=== PATIENT | female | born 1980 | race Hispanic/Latino ===

== ENCOUNTER 2017-05-03 16:22 | Emergency (ER) | payer OTHER ==
[2017-05-03] MEDS ORDERED: Amoxicillin/Potassium Clav 875 MG TAB ONE (16:50)
[2017-05-03] MEDS ORDERED: Adacel (T-DAP) 0.5 ML VIAL ONE (16:50)
[2017-05-03] MEDS ORDERED: Triple Antibiotic Oint 1 GM Packet ONE (16:50)
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
== END 2017-05-03 20:51 | disposition home or self-care (01) ==
LOC: MADERS 16:22
DX: S91.151A Open bite of right great toe without damage to nail, initial encounter (principal); S91.154A Open bite of right lesser toe(s) without damage to nail, initial encounter; J45.909 Unspecified asthma, uncomplicated; I10 Essential (primary) hypertension; E11.9 Type 2 diabetes mellitus without complications; F25.9 Schizoaffective disorder, unspecified; Z87.891 Personal history of nicotine dependence; W54.0XXA Bitten by dog, initial encounter
CPT/HCPCS: 90471; 90715

== ENCOUNTER 2017-05-09 10:51 | Emergency (ER) | payer OTHER ==
[2017-05-09] MEDS ORDERED: Diazepam 5 MG TAB ONE (11:00)
[2017-05-09 11:38] LABS: Pregnancy Test - Urine (BHCG) Negative (Negative); Pregu Control Background? CLEAR/WHITE (CLR/WHITE); Pregu Control Bar Appear? YES (CONTROL BAR)
--- NOTE | 2017-05-09 12:02 | RAD ---
CHEST TWO VIEWS: History: Cough. Comparison: None. FINDINGS: Normal cardiac silhouette. Pulmonary vessels and hilum are normal. No consolidation. Focal nodular d ensity in the right midlung, measuring 0.8 cm is noted. No pneumothorax or osseous abnormality. IMPRESSION: Nonspecific right midlung density measuring 0.8 cm. POS: [facility]
== END 2017-05-09 12:33 | disposition home or self-care (01) ==
LOC: MADERS 10:51
DX: F41.9 Anxiety disorder, unspecified (principal); J45.909 Unspecified asthma, uncomplicated; B19.20 Unspecified viral hepatitis C without hepatic coma; I10 Essential (primary) hypertension; E11.9 Type 2 diabetes mellitus without complications; F25.9 Schizoaffective disorder, unspecified; F17.210 Nicotine dependence, cigarettes, uncomplicated; Z79.899 Other long term (current) drug therapy
CPT/HCPCS: 71020; 81025

== ENCOUNTER 2017-07-26 06:18 | Emergency (ER) | payer OTHER ==
[2017-07-26] MEDS ORDERED: Ibuprofen 800 MG TAB ONE (07:14)
[2017-07-26] MEDS ORDERED: Fentanyl 100 MCG/2 ML VIAL ONE (07:14)
[2017-07-26] MEDS ORDERED: Ondansetron ODT 4 MG TAB ONE (07:14)
== END 2017-07-26 07:50 | disposition home or self-care (01) ==
LOC: MADERS 06:18
DX: J11.1 Influenza due to unidentified influenza virus with other respiratory manifestations (principal); J45.909 Unspecified asthma, uncomplicated; I10 Essential (primary) hypertension; E11.9 Type 2 diabetes mellitus without complications; F25.9 Schizoaffective disorder, unspecified; F17.210 Nicotine dependence, cigarettes, uncomplicated; Z79.899 Other long term (current) drug therapy
CPT/HCPCS: 96372; J3010; J7620; Q0162

== ENCOUNTER 2017-08-06 15:30 | Emergency (ER) | payer OTHER ==
[2017-08-06] MEDS ORDERED: Promethazine HCl 25 MG/ML VIAL ONE (16:48)
[2017-08-06 17:12] LABS: Pregnancy Test - Urine (BHCG) Negative (Negative); Specific Gravity 1.029 (1.002-1.036)
[2017-08-06 17:13] LABS: Pregu Control Background? CLEAR/WHITE (CLR/WHITE); Pregu Control Bar Appear? YES (CONTROL BAR)
[2017-08-06] MEDS ORDERED: Loperamide HCl 2 MG CAP ONE (17:56)
[2017-08-06] MEDS ORDERED: Benzonatate 100 MG CAP ONE (18:30)
== END 2017-08-06 18:46 | disposition home or self-care (01) ==
LOC: MADERS 15:30
DX: K52.9 Noninfective gastroenteritis and colitis, unspecified (principal); J45.909 Unspecified asthma, uncomplicated; I10 Essential (primary) hypertension; E11.9 Type 2 diabetes mellitus without complications; F25.9 Schizoaffective disorder, unspecified; F17.210 Nicotine dependence, cigarettes, uncomplicated
CPT/HCPCS: 81025; 96372; J2550

== ENCOUNTER 2017-08-07 11:37 | Emergency (ER) | payer OTHER ==
[2017-08-07] MEDS ORDERED: Lorazepam 2 MG/ML VIAL ONE (13:02)
[2017-08-07] MEDS ORDERED: Diazepam 5 MG TAB ONE (13:11)
== END 2017-08-07 13:16 | disposition home or self-care (01) ==
LOC: MADERS 11:37
DX: J20.9 Acute bronchitis, unspecified (principal); F41.9 Anxiety disorder, unspecified; F20.9 Schizophrenia, unspecified; J45.909 Unspecified asthma, uncomplicated; E11.9 Type 2 diabetes mellitus without complications; I10 Essential (primary) hypertension; F17.210 Nicotine dependence, cigarettes, uncomplicated; Z79.899 Other long term (current) drug therapy
CPT/HCPCS: 99282; J2060

== ENCOUNTER 2017-08-12 08:43 | Emergency (ER) | payer OTHER | END 2017-08-12 09:20 | disposition home or self-care (01) | LOC: MADERS 08:43 | DX: M79.602 Pain in left arm (principal); M54.5 Low back pain; G89.29 Other chronic pain | CPT/HCPCS: 99283 ==

== ENCOUNTER 2017-09-06 02:28 | Emergency (ER) | payer OTHER ==
[2017-09-06] MEDS ORDERED: Ketorolac Tromethamine 30 MG/ML VIAL ONE (03:46)
[2017-09-06] MEDS ORDERED: Ondansetron HCl/PF 4 MG/2 ML Vial ONE (03:46)
[2017-09-06 04:01] LABS: Bilirubin Negative (Negative); Blood, Urine Moderate (Negative); Clarity Clear (Clear); Glucose, Urine (Dipstick) Negative (Negative); Leukocyte Negative (Negative); Nitrite Negative (Negative); Protein, Urine (Dipstick) Negative (Neg-Trace); Urobilinogen 0.2 mg/dL (0.2-1.0)
[2017-09-06 04:10] LABS: Amphetamine Not Detected (NotDetected); Barbiturates Screen Not Detected (NotDetected); Benzodiazepine Screen Detected (NotDetected); Cocaine Metabolite Screen Not Detected (NotDetected); Medtox Control Line Valid? VALID (VALID); Methadone Not Detected (NotDetected); Methamphetamine Not Detected (NotDetected); Opiate Screen Not Detected (NotDetected); Oxycodone Screen Not Detected (NotDetected); Phencyclidine (PCP) Not Detected (NotDetected); THC/Cannabinoid Screen Not Detected (NotDetected); Tricyclic Screen Not Detected (NotDetected)
[2017-09-06 04:13] LABS: Bacteria/HPF None Seen HPF (None Seen); WBC/HPF 0-3 HPF (0-3)
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
== END 2017-09-06 04:57 | disposition home or self-care (01) ==
LOC: MADERS 02:28
DX: S02.2XXA Fracture of nasal bones, initial encounter for closed fracture (principal); S01.511A Laceration without foreign body of lip, initial encounter; J45.909 Unspecified asthma, uncomplicated; E11.9 Type 2 diabetes mellitus without complications; F41.9 Anxiety disorder, unspecified; F17.210 Nicotine dependence, cigarettes, uncomplicated; Z79.899 Other long term (current) drug therapy; W22.8XXA Striking against or struck by other objects, initial encounter
CPT/HCPCS: 70450; 70486; 72125; 80306; 81001; 87086; J1885; J2405

== ENCOUNTER 2018-01-03 12:27 | Emergency (ER) | payer OTHER | END 2018-01-03 13:54 | disposition left against medical advice (07) | LOC: MADERS 12:27 | DX: S00.83XA Contusion of other part of head, initial encounter (principal); J45.909 Unspecified asthma, uncomplicated; E11.9 Type 2 diabetes mellitus without complications; F41.9 Anxiety disorder, unspecified; Z87.891 Personal history of nicotine dependence; Z79.899 Other long term (current) drug therapy; Y04.1XXA Assault by human bite, initial encounter | CPT/HCPCS: 99282 ==

== ENCOUNTER 2018-01-04 11:16 | Emergency (ER) | payer OTHER ==
[2018-01-04 11:36] LABS: Pregnancy Test - Urine (BHCG) Negative (Negative); Pregu Control Background? CLEAR/WHITE (CLR/WHITE); Pregu Control Bar Appear? YES (CONTROL BAR); Specific Gravity 1.025 (1.002-1.036)
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
== END 2018-01-04 12:05 | disposition home or self-care (01) ==
LOC: MADERS 11:16
DX: S01.451A Open bite of right cheek and temporomandibular area, initial encounter (principal); L03.211 Cellulitis of face; E11.9 Type 2 diabetes mellitus without complications; F41.9 Anxiety disorder, unspecified; J45.909 Unspecified asthma, uncomplicated; Z87.891 Personal history of nicotine dependence; Z79.899 Other long term (current) drug therapy; Y04.1XXA Assault by human bite, initial encounter
CPT/HCPCS: 70486; 81025

== ENCOUNTER 2018-01-29 12:18 | Emergency (ER) | payer OTHER | END 2018-01-29 13:00 | disposition home or self-care (01) | LOC: MADERS 12:18 | DX: M25.562 Pain in left knee (principal); E11.9 Type 2 diabetes mellitus without complications; J45.909 Unspecified asthma, uncomplicated; F41.9 Anxiety disorder, unspecified; Z87.891 Personal history of nicotine dependence | CPT/HCPCS: 99283 ==

== ENCOUNTER 2018-05-20 07:15 | Emergency (ER) | payer MEDICAID, OTHER ==
[2018-05-20] MEDS ORDERED: Lorazepam 1 MG TAB ONE (08:07)
== END 2018-05-20 08:15 | disposition home or self-care (01) ==
LOC: MADERS 07:15
DX: F41.0 Panic disorder [episodic paroxysmal anxiety] (principal)
CPT/HCPCS: 99282

== ENCOUNTER 2018-05-24 07:54 | Emergency (ER) | payer MEDICAID ==
[2018-05-24] MEDS ORDERED: Ibuprofen 800 MG TAB ONE (08:24)
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
== END 2018-05-24 08:55 | disposition home or self-care (01) ==
LOC: MADERS 07:54
DX: S83.92XA Sprain of unspecified site of left knee, initial encounter (principal); S16.1XXA Strain of muscle, fascia and tendon at neck level, initial encounter; S39.012A Strain of muscle, fascia and tendon of lower back, initial encounter; S40.012A Contusion of left shoulder, initial encounter; R05 Cough; F41.9 Anxiety disorder, unspecified; Z79.899 Other long term (current) drug therapy; F17.200 Nicotine dependence, unspecified, uncomplicated; W01.0XXA Fall on same level from slipping, tripping and stumbling without subsequent striking against object, initial encounter

== ENCOUNTER 2018-07-27 04:04 | Emergency (ER) | payer MEDICAID ==
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
== END 2018-07-27 07:08 | disposition home or self-care (01) ==
LOC: MADERS 04:04
DX: S50.11XA Contusion of right forearm, initial encounter (principal); S20.222A Contusion of left back wall of thorax, initial encounter; S00.83XA Contusion of other part of head, initial encounter; E11.9 Type 2 diabetes mellitus without complications; I10 Essential (primary) hypertension; E66.9 Obesity, unspecified; J45.909 Unspecified asthma, uncomplicated; F41.9 Anxiety disorder, unspecified; F32.9 Major depressive disorder, single episode, unspecified; F25.9 Schizoaffective disorder, unspecified; F17.200 Nicotine dependence, unspecified, uncomplicated; Z79.51 Long term (current) use of inhaled steroids; Y04.0XXA Assault by unarmed brawl or fight, initial encounter
CPT/HCPCS: 70450; 70486

== ENCOUNTER 2018-10-30 09:34 | Emergency (ER) | payer MEDICAID, OTHER | END 2018-10-30 09:57 | disposition home or self-care (01) | LOC: MADERS 09:34 | DX: F41.9 Anxiety disorder, unspecified (principal); E11.9 Type 2 diabetes mellitus without complications; I10 Essential (primary) hypertension; J45.909 Unspecified asthma, uncomplicated; F32.9 Major depressive disorder, single episode, unspecified; F25.9 Schizoaffective disorder, unspecified; F17.200 Nicotine dependence, unspecified, uncomplicated | CPT/HCPCS: 99283 ==

== ENCOUNTER 2019-06-18 11:10 | Emergency (ER) | payer OTHER | END 2019-06-18 11:45 | disposition home or self-care (01) | LOC: MADERS 11:10 | DX: F41.9 Anxiety disorder, unspecified (principal); E11.9 Type 2 diabetes mellitus without complications; I10 Essential (primary) hypertension; E66.9 Obesity, unspecified; J45.909 Unspecified asthma, uncomplicated; F32.9 Major depressive disorder, single episode, unspecified; F25.9 Schizoaffective disorder, unspecified; F17.200 Nicotine dependence, unspecified, uncomplicated | CPT/HCPCS: 99283 ==

== ENCOUNTER 2019-06-25 21:40 | Emergency (ER) | payer OTHER | END 2019-06-25 22:10 | disposition left against medical advice (07) | LOC: MADERS 21:40 | DX: Z53.21 Procedure and treatment not carried out due to patient leaving prior to being seen by health care provider (principal) ==

== ENCOUNTER 2019-07-05 06:04 | Emergency (ER) | payer OTHER ==
[2019-07-05] MEDS ORDERED: Lidocaine 2% 20 ml MDV ONE (06:29)
[2019-07-05] MEDS ORDERED: Sodium Chloride Irrig Solution 250 ML BOT ONE (06:36)
[2019-07-05 07:22] LABS: Pregnancy Test - Urine (BHCG) Negative (Negative); Pregu Control Background? CLEAR/WHITE (CLR/WHITE); Pregu Control Bar Appear? YES (CONTROL BAR); Specific Gravity 1.013 (1.002-1.036)
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
[2019-07-05] MEDS ORDERED: Bacitracin 1 PK ONE (07:51)
== END 2019-07-05 08:05 | disposition home or self-care (01) ==
LOC: MADERS 06:04
DX: S01.511A Laceration without foreign body of lip, initial encounter (principal); E11.9 Type 2 diabetes mellitus without complications; I10 Essential (primary) hypertension; J45.909 Unspecified asthma, uncomplicated; F41.9 Anxiety disorder, unspecified; F17.210 Nicotine dependence, cigarettes, uncomplicated; Y04.8XXA Assault by other bodily force, initial encounter
CPT/HCPCS: 70486; 81025; J2001

== ENCOUNTER 2021-01-15 10:36 | Emergency (ER) | payer OTHER ==
[2021-01-15] MEDS ORDERED: Ketorolac Tromethamine 30 MG/ML VIAL ONE (11:28)
== END 2021-01-15 12:00 | disposition home or self-care (01) ==
LOC: MADERS 10:36
DX: S83.92XA Sprain of unspecified site of left knee, initial encounter (principal); E11.9 Type 2 diabetes mellitus without complications; I10 Essential (primary) hypertension; F17.210 Nicotine dependence, cigarettes, uncomplicated; X58.XXXA Exposure to other specified factors, initial encounter
CPT/HCPCS: 96372; 99283; J1885

== ENCOUNTER 2021-02-07 07:47 | Emergency (ER) | payer OTHER | END 2021-02-07 08:23 | disposition home or self-care (01) | LOC: MADERS 07:47 | DX: J45.901 Unspecified asthma with (acute) exacerbation (principal); F41.9 Anxiety disorder, unspecified; I10 Essential (primary) hypertension; E11.9 Type 2 diabetes mellitus without complications; F17.210 Nicotine dependence, cigarettes, uncomplicated; Z79.899 Other long term (current) drug therapy; Z71.6 Tobacco abuse counseling | CPT/HCPCS: 99406 ==

== ENCOUNTER 2021-02-22 08:22 | Emergency (ER) | payer OTHER | END 2021-02-22 10:00 | disposition home or self-care (01) | LOC: MADERS 08:22 | DX: S93.501A Unspecified sprain of right great toe, initial encounter (principal); S43.401A Unspecified sprain of right shoulder joint, initial encounter; S00.531A Contusion of lip, initial encounter; S00.03XA Contusion of scalp, initial encounter; E11.9 Type 2 diabetes mellitus without complications; E66.9 Obesity, unspecified; I10 Essential (primary) hypertension; J45.909 Unspecified asthma, uncomplicated; F17.210 Nicotine dependence, cigarettes, uncomplicated; V89.2XXA Person injured in unspecified motor-vehicle accident, traffic, initial encounter ==

== ENCOUNTER 2021-04-05 09:25 | Emergency (ER) | payer OTHER ==
[2021-04-05 09:58] LABS: Pregnancy Test - Urine (BHCG) Negative (Negative); Pregu Control Background? CLEAR/WHITE (CLR/WHITE); Pregu Control Bar Appear? YES (CONTROL BAR)
[2021-04-05 10:00] LABS: Specific Gravity 1.023 (1.002-1.036)
[2021-04-08 21:48] LABS: Chlamydia by PCR Not Detected (NotDetected); GC by PCR DETECTED (NotDetected)
== END 2021-04-05 10:16 | disposition home or self-care (01) ==
LOC: MADERS 09:25
DX: N93.8 Other specified abnormal uterine and vaginal bleeding (principal); E11.9 Type 2 diabetes mellitus without complications; I10 Essential (primary) hypertension; E66.9 Obesity, unspecified; J45.909 Unspecified asthma, uncomplicated; F17.210 Nicotine dependence, cigarettes, uncomplicated
CPT/HCPCS: 81025; 87491; 87591; 99284

== ENCOUNTER 2021-04-09 13:08 | Emergency (ER) | payer OTHER ==
[2021-04-09] MEDS ORDERED: cefTRIAXone\\ROCEPHIN 1 GM VIAL ONE (13:40)
[2021-04-09] MEDS ORDERED: Azithromycin 250 MG TAB ONE (13:40)
[2021-04-09] MEDS ORDERED: Lidocaine 1% 20 ML MDV ONE (13:40)
== END 2021-04-09 14:00 | disposition home or self-care (01) ==
LOC: MADERS 13:08
DX: A54.03 Gonococcal cervicitis, unspecified (principal); E66.9 Obesity, unspecified; E11.9 Type 2 diabetes mellitus without complications; I10 Essential (primary) hypertension; J45.909 Unspecified asthma, uncomplicated; F17.210 Nicotine dependence, cigarettes, uncomplicated
CPT/HCPCS: 96372; 99283; J0696

== ENCOUNTER 2021-04-25 15:25 | Emergency (ER) | payer OTHER | END 2021-04-25 16:10 | disposition left against medical advice (07) | LOC: MADERS 15:25 | DX: Z53.21 Procedure and treatment not carried out due to patient leaving prior to being seen by health care provider (principal) ==

== ENCOUNTER 2021-04-25 17:38 | Emergency (ER) | payer OTHER ==
[2021-04-25] MEDS ORDERED: Bupivacaine PF 0.5% 30 ML VIAL ONE (18:46)
== END 2021-04-25 18:50 | disposition left against medical advice (07) ==
LOC: MADERS 17:38
DX: S61.012A Laceration without foreign body of left thumb without damage to nail, initial encounter (principal); E66.9 Obesity, unspecified; E11.9 Type 2 diabetes mellitus without complications; I10 Essential (primary) hypertension; J45.909 Unspecified asthma, uncomplicated; F17.210 Nicotine dependence, cigarettes, uncomplicated; W26.0XXA Contact with knife, initial encounter; Z92.89 Personal history of other medical treatment; Z99.0 Dependence on aspirator
CPT/HCPCS: 99282; S0020

== ENCOUNTER 2021-05-12 14:37 | Outpatient (CLI) | payer OTHER | END 2021-05-12 14:38 | disposition home or self-care (01) | LOC: MADLAB 14:37 → MADRAD 14:38 | PROVIDERS: ATTEND Nurse Practitioner Family | DX: S09.93XA Unspecified injury of face, initial encounter (principal) | CPT/HCPCS: 70110; 70200 ==

== ENCOUNTER 2021-06-27 00:07 | Emergency (ER) | payer OTHER ==
[2021-06-27] MEDS ORDERED: Ketorolac Tromethamine 60 MG/2 ML VIAL ONE (00:49)
[2021-06-27] MEDS ORDERED: HYDROcodone/Acetaminophen 5/325 mg Tablet ONE (00:49)
== END 2021-06-27 01:00 | disposition home or self-care (01) ==
LOC: MADERS 00:07
DX: S83.91XA Sprain of unspecified site of right knee, initial encounter (principal); E66.9 Obesity, unspecified; E11.9 Type 2 diabetes mellitus without complications; J45.909 Unspecified asthma, uncomplicated; F17.210 Nicotine dependence, cigarettes, uncomplicated; W19.XXXA Unspecified fall, initial encounter
CPT/HCPCS: 96372; J1885

== ENCOUNTER 2021-06-27 14:46 | Emergency (ER) | payer OTHER | END 2021-06-27 15:30 | disposition left against medical advice (07) | LOC: MADERS 14:46 | DX: Z53.21 Procedure and treatment not carried out due to patient leaving prior to being seen by health care provider (principal) ==

== ENCOUNTER 2021-10-18 15:36 | Emergency (ER) | payer OTHER | END 2021-10-18 16:08 | disposition left against medical advice (07) | LOC: MADERS 15:36 | DX: Z53.21 Procedure and treatment not carried out due to patient leaving prior to being seen by health care provider (principal) ==

== ENCOUNTER 2021-11-02 12:02 | Emergency (ER) | payer OTHER ==
[2021-11-02 12:35] LABS: #Basophils 0.1 thou/uL (0.0-0.2); #Eosinphils 0.2 thou/uL (0.0-0.7); #Monocytes 0.6 thou/uL (0.11-0.59); #Neutrophils 6.4 thou/uL (1.40-6.50); %Basophils 1.1 % (0.0-1.0); %Eosinophils 1.8 % (0.0-10.0); %Lymphocytes 21.2 % (21.0-51.0); %Monocytes 6.6 % (0.0-10.0); %Neutrophils 69.2 % (42.0-75.0); Hemoglobin 14.6 g/dL (12.0-16.0); Mean Corpuscular HGB CONC 32.5 g/dL (32.0-36.0); Mean Corpuscular Hemoglobin 32.3 pg (27.0-31.0); Mean Corpuscular Volume 99.4 fL (78.0-98.0); Mean Platelet Volume 8.7 fL (7.4-10.4); Platelet Count 271 thou/uL (130-400); RBC Distribution Width 11.5 % (11.5-14.5); White Blood Cell (WBC) Count 9.2 thou/uL (4.8-10.8)
[2021-11-02 12:42] LABS: Bilirubin Negative (Negative); Blood, Urine Moderate (Negative); Clarity Clear (Clear); Glucose, Urine (Dipstick) Negative (Negative); Ketone, Urine Negative (Negative); Leukocyte Negative (Negative); Nitrite Negative (Negative); Protein, Urine (Dipstick) Negative (Neg-Trace); Specific Gravity, Urine 1.025 (1.005-1.030); Urobilinogen 0.2 mg/dL (Less than 2)
[2021-11-02 12:43] LABS: Bacteria/HPF Rare-Few HPF (None Seen); Squamous Epithelial 0-3 HPF (0-3); WBC/HPF 0-3 HPF (0-3)
[2021-11-02 12:55] LABS: ALT (SGPT) 16 U/L (8-55); AST (SGOT) 13 U/L (5-34); Albumin 3.8 g/dL (3.5-5.0); Alkaline Phosphatase 79 U/L (40-110); Anion Gap 14 mmol/L (10-20); BUN (Urea Nitrogen) 13 mg/dL (7.0-18.7); Bilirubin, Total 0.5 mg/dL (0.2-1.2); CK (CPK) 95 U/L (29-168); Calc. Creatinine Clearance 0 mL/min (70-130); Calcium 8.8 mg/dL (7.8-10.44); Carbon Dioxide 22 mmol/L (22-29); Chloride 108 mmol/L (98-107); Globulin 2.7 g/dL (2.4-3.5); Glucose 102 mg/dL (70-105); Protein, Total 6.5 g/dL (6.0-8.3); Sodium 140 mmol/L (136-145)
== END 2021-11-02 14:45 | disposition home or self-care (01) ==
LOC: MADERS 12:02
DX: R00.2 Palpitations (principal)
CPT/HCPCS: 80053; 81003; 81015; 82550; 84484; 85025; 93005

== ENCOUNTER 2022-05-22 20:50 | Emergency (ER) | payer OTHER ==
[2022-05-22] MEDS ORDERED: Ketorolac Tromethamine 30 MG/ML VIAL ONE (21:31)
[2022-05-22] MEDS ORDERED: Ondansetron ODT 4 MG TAB ONE (21:31)
[2022-05-22] MEDS ORDERED: Ondansetron PF 4 MG/2 ML Vial ONE (21:31)
[2022-05-22] MEDS ORDERED: Sodium Chloride 0.9% 1,000 ML ONE (21:31)
[2022-05-22 22:12] LABS: #Basophils 0.1 thou/uL (0.0-0.2); #Eosinphils 0.5 thou/uL (0.0-0.7); #Lymphocytes 4.1 thou/uL (1.20-3.40); #Neutrophils 6.4 thou/uL (1.40-6.50); %Basophils 0.7 % (0.0-1.0); %Eosinophils 3.9 % (0.0-10.0); %Monocytes 8.6 % (0.0-10.0); %Neutrophils 52.8 % (42.0-75.0); Hemoglobin 14.9 g/dL (12.0-16.0); Mean Corpuscular HGB CONC 34.6 g/dL (32.0-36.0); Mean Corpuscular Hemoglobin 34.4 pg (27.0-31.0); Mean Corpuscular Volume 99.5 fL (78.0-98.0); Mean Platelet Volume 9.5 fL (7.4-10.4); Platelet Count 219 thou/uL (130-400); RBC Distribution Width 12.2 % (11.5-14.5); Red Blood Cell (RBC) Count 4.32 mill/uL (4.20-5.40); White Blood Cell (WBC) Count 12.1 thou/uL (4.8-10.8)
[2022-05-22 22:28] LABS: ALT (SGPT) 12 U/L (8-55); AST (SGOT) 11 U/L (5-34); Albumin 3.7 g/dL (3.5-5.0); Alkaline Phosphatase 76 U/L (40-110); Anion Gap 12 mmol/L (10-20); BUN (Urea Nitrogen) 21 mg/dL (7.0-18.7); Bilirubin, Total 0.3 mg/dL (0.2-1.2); Calc. Creatinine Clearance 0 mL/min (70-130); Calcium 8.7 mg/dL (7.8-10.44); Carbon Dioxide 22 mmol/L (22-29); Chloride 109 mmol/L (98-107); Estimated GFR 87; Globulin 2.5 g/dL (2.4-3.5); Glucose 91 mg/dL (70-105); Lipase 20 U/L (8-78); Protein, Total 6.2 g/dL (6.0-8.3); Sodium 139 mmol/L (136-145)
[2022-05-22 22:36] LABS: Bilirubin Negative (Negative); Blood, Urine Negative (Negative); Clarity Clear (Clear); Glucose, Urine (Dipstick) Negative (Negative); Ketone, Urine Negative (Negative); Leukocyte Negative (Negative); Nitrite Negative (Negative); Protein, Urine (Dipstick) Negative (Neg-Trace); Specific Gravity, Urine 1.025 (1.005-1.030); Urobilinogen 0.2 mg/dL (Less than 2)
[2022-05-22 22:39] LABS: Pregnancy Test - Urine (BHCG) Negative (Negative); Pregu Control Background? CLEAR/WHITE (CLR/WHITE); Pregu Control Bar Appear? YES (CONTROL BAR); Specific Gravity 1.025 (1.002-1.036)
== END 2022-05-22 23:40 | disposition home or self-care (01) ==
LOC: MADERS 20:50
DX: R10.9 Unspecified abdominal pain (principal); F17.200 Nicotine dependence, unspecified, uncomplicated; R11.2 Nausea with vomiting, unspecified
CPT/HCPCS: 36415; 74176; 80053; 81003; 81025; 83605; 83690; 84484; 85025; 86140; 93005; 96361; 96374; 96375; J1885; J2405; J7050; Q0162

== ENCOUNTER 2022-07-17 14:25 | Emergency (ER) | payer OTHER ==
[2022-07-17] MEDS ORDERED: Metoclopramide HCl 10 MG/2 ML VIAL ONE (14:45)
[2022-07-17] MEDS ORDERED: Ondansetron PF 4 MG/2 ML Vial ONE (14:45)
[2022-07-17 14:58] LABS: #Basophils 0.1 thou/uL (0.0-0.2); #Eosinphils 0.2 thou/uL (0.0-0.7); #Lymphocytes 2.2 thou/uL (1.20-3.40); #Neutrophils 7.3 thou/uL (1.40-6.50); %Basophils 0.8 % (0.0-1.0); %Eosinophils 2.3 % (0.0-10.0); %Lymphocytes 20.6 % (21.0-51.0); %Monocytes 9.5 % (0.0-10.0); %Neutrophils 66.9 % (42.0-75.0); Hemoglobin 15.2 g/dL (12.0-16.0); Mean Corpuscular HGB CONC 33.6 g/dL (32.0-36.0); Mean Corpuscular Hemoglobin 33.1 pg (27.0-31.0); Mean Corpuscular Volume 98.8 fl (78.0-98.0); Mean Platelet Volume 8.6 fL (7.4-10.4); Platelet Count 238 10x3/uL (130-400); RBC Distribution Width 12.3 % (11.5-14.5); Red Blood Cell (RBC) Count 4.59 mill/uL (4.20-5.40); White Blood Cell (WBC) Count 10.9 10x3/uL (4.8-10.8)
[2022-07-17 15:15] LABS: ALT (SGPT) 14 U/L (8-55); AST (SGOT) 9 U/L (5-34); Albumin 3.6 g/dL (3.5-5.0); Alkaline Phosphatase 79 U/L (40-110); Anion Gap 12 mmol/L (10-20); BUN (Urea Nitrogen) 12 mg/dL (7.0-18.7); Bilirubin, Total 0.3 mg/dL (0.2-1.2); Calc. Creatinine Clearance 0 mL/min (70-130); Calcium 8.6 mg/dL (7.8-10.44); Carbon Dioxide 23 mmol/L (22-29); Chloride 108 mmol/L (98-107); Estimated GFR 88; Globulin 2.4 g/dL (2.4-3.5); Glucose 99 mg/dL (70-105); Lipase 18 U/L (8-78); Potassium 3.3 mmol/L (3.5-5.1); Sodium 140 mmol/L (136-145)
== END 2022-07-17 15:45 | disposition home or self-care (01) ==
LOC: MADERS 14:25
DX: R11.2 Nausea with vomiting, unspecified (principal); R19.7 Diarrhea, unspecified; F17.210 Nicotine dependence, cigarettes, uncomplicated
CPT/HCPCS: 36415; 74018; 80053; 83690; 85025; 96374; 96375; J2405; J2765

== ENCOUNTER 2022-09-07 08:47 | Emergency (ER) | payer OTHER ==
[2022-09-07] MEDS ORDERED: Orphenadrine Citrate 60 MG/2 ML VIAL ONE (09:22)
[2022-09-07] MEDS ORDERED: Ketorolac Tromethamine 30 MG/ML VIAL ONE (09:22)
== END 2022-09-07 09:53 | disposition home or self-care (01) ==
LOC: MADERS 08:47
DX: M25.521 Pain in right elbow (principal); K08.89 Other specified disorders of teeth and supporting structures; F17.210 Nicotine dependence, cigarettes, uncomplicated
CPT/HCPCS: 96372; 99283; J1885; J2360

== ENCOUNTER 2022-09-11 10:35 | Emergency (ER) | payer OTHER ==
[2022-09-11] MEDS ORDERED: AMOXicillin 250 MG CAP ONE (11:26)
== END 2022-09-11 11:31 | disposition home or self-care (01) ==
LOC: MADERS 10:35
DX: K08.89 Other specified disorders of teeth and supporting structures (principal); E16.2 Hypoglycemia, unspecified; F17.210 Nicotine dependence, cigarettes, uncomplicated
CPT/HCPCS: 99282

== ENCOUNTER 2024-02-07 08:38 | Emergency (ER) | payer OTHER | END 2024-02-07 09:37 | disposition home or self-care (01) | LOC: MADERS 08:38 | DX: S30.861A Insect bite (nonvenomous) of abdominal wall, initial encounter (principal); S20.469A Insect bite (nonvenomous) of unspecified back wall of thorax, initial encounter; W57.XXXA Bitten or stung by nonvenomous insect and other nonvenomous arthropods, initial encounter | CPT/HCPCS: 99283 ==

== ENCOUNTER 2024-06-23 14:00 | Emergency (ER) | payer OTHER | END 2024-06-23 15:16 | disposition home or self-care (01) | LOC: MADERS 14:00 | DX: M25.512 Pain in left shoulder (principal); F17.210 Nicotine dependence, cigarettes, uncomplicated | CPT/HCPCS: 99283 ==

== ENCOUNTER 2024-09-07 16:49 | Emergency (ER) | payer OTHER ==
[2024-09-07] MEDS ORDERED: Acetaminophen 500 MG TAB ONE (17:47)
[2024-09-07] MEDS ORDERED: Ketorolac Tromethamine 30 MG (1 mL) VIAL ONE (17:47)
[2024-09-07] MEDS ORDERED: Lidocaine 4% Patch ONE (17:47)
== END 2024-09-07 18:22 | disposition home or self-care (01) ==
LOC: MADERS 16:49
DX: S43.401A Unspecified sprain of right shoulder joint, initial encounter (principal); S16.1XXA Strain of muscle, fascia and tendon at neck level, initial encounter; F17.210 Nicotine dependence, cigarettes, uncomplicated; W01.0XXA Fall on same level from slipping, tripping and stumbling without subsequent striking against object, initial encounter
CPT/HCPCS: 72220; 96372; 99283; J1885

== ENCOUNTER 2024-10-24 10:50 | Emergency (ER) | payer MEDICAID ==
[2024-10-24] MEDS ORDERED: Ketorolac Tromethamine 30 MG (1 mL) VIAL ONE (11:23)
== END 2024-10-24 12:36 | disposition home or self-care (01) ==
LOC: MADERS 10:50
DX: S63.501A Unspecified sprain of right wrist, initial encounter (principal); S43.401A Unspecified sprain of right shoulder joint, initial encounter; F17.210 Nicotine dependence, cigarettes, uncomplicated; W18.30XA Fall on same level, unspecified, initial encounter; Y92.512 Supermarket, store or market as the place of occurrence of the external cause
CPT/HCPCS: 96372; 99283; J1885

== ENCOUNTER 2025-02-26 22:31 | Emergency (ER) | payer MEDICAID, OTHER | END 2025-02-26 23:40 | disposition home or self-care (01) | LOC: MADERS 22:31 | DX: S80.812A Abrasion, left lower leg, initial encounter (principal); F17.210 Nicotine dependence, cigarettes, uncomplicated; W22.8XXA Striking against or struck by other objects, initial encounter | CPT/HCPCS: 99283 ==